=== PATIENT | female | born 1970 | race Caucasian/White ===

== ENCOUNTER 2018-12-26 01:49 | Observation (INO) | payer OTHER ==
--- NOTE | 2018-12-26 01:53 | PDOC ---
History of Present Illness - General Stated Complaint: SYNCOPE Time Seen by Provider: 12/26/18 01:51 - History of Present Illness Initial Comments: 12/26/18 03:38 48F with pmh of adenocarcinoma of the left breast, (last chemo and radiation in June 2017, August 2017) and HTN presents to the ED after episode of syncope at home this evening and low blood pressure as long as systolic in the 80's according to EMS. She went to the bathroom to pee then went downstairs to see her son, felt a hot flash and sat down before losing consciousness for a minute. Event was witnessed by family. She had a similar episode a month ago when she ended falling on the floor, no follow up. Had a recent echo by her head greenskeeper that found she had a "bad valve" No slurred speech or weakness. Patient states she's been having hypotension and presyncopal symptoms ever since she started Carvedilol and Lisinopril. Denies fever, chest pain, sob, Past History - Past Medical History Allergies/Adverse Reactions: Allergies Allergy/AdvReac Type Severity Reaction Status Date / Time Iodinated Contrast- Oral and AdvReac Verified 12/26/18 04:12 IV Dye Home Medications: Ambulatory Orders Carvedilol Phosphate [Carvedilol ER] 10 mg PO BID 12/26/18 Exemestane [Aromasin -] 25 mg PO DAILY 12/26/18 Lisinopril 20 mg PO DAILY 12/26/18 Review of Systems - Review of Systems Able to Perform ROS?: Yes Is the patient limited Mongolian proficient: No Constitutional: Yes: Chills HEENTM: No: Symptoms Reported Respiratory: No: Symptoms reported Cardiac (ROS): No: Symptoms Reported ABD/GI: No: Symptoms Reported : No: Symptoms Reported Musculoskeletal: No: Symptoms Reported Integumentary: No: Symptoms Reported Neurological: No: Symptoms reported All Other Systems: Reviewed and Negative *Physical Exam - Physical Exam General Appearance: Yes: Nourished, Appropriately Dressed. No: Apparent Distress HEENT: positive: EOMI, CHARLIE, Normal ENT Inspection Respiratory/Chest: positive: Lungs Clear, Normal Breath Sounds. negative: Chest Tender, Respiratory Distress Cardiovascular: positive: Regular Rhythm, Regular Rate, S1, S2 Gastrointestinal/Abdominal: positive: Normal Bowel Sounds, Flat, Soft. negative : Tender Musculoskeletal: positive: Normal Inspection. negative: CVA Tenderness Extremity: positive: Normal Capillary Refill, Normal Inspection, Normal Range of Motion Integumentary: positive: Normal Color, Dry, Warm Neurologic: positive: Fully Oriented, Alert, Normal Mood/Affect, Normal Response , Motor Strength 11/07 ED Treatment Course - LABORATORY CBC & Chemistry Diagram: 12/26/18 02:17 12/26/18 02:17 Medical Decision Making - Medical Decision Making 12/26/18 02:37 48f with syncope and hypotension. Drug induced vs vasovagal vsOrthostatic hypotension vs arrhythmia vs PE EKG: Normal sinus rhtyhm, prolonged QT (448/493), abnormal ekg 12/26/18 04:[address]: No evidence of pathology. Prolonged QT is certainly a reasonable, possible cause for her syncope. Because the patient si currently getting cancer treatment she is at risk for Pe. D-dimer is elevated at 1438. Will need to obtain CTA chest to r/o PE 12/26/18 05:45 CTA FINDINGS: There is no PE or dissection. Heart size is normal. The trachea and bronchi are patent. There is no pleural or pericardial effusion. Focal infiltrate posterior aspect right lower lobe is suspected to represent pneumonia. The lungs are clear. No fractures identified. Right hepatic lobe hypodensity is questioned a cyst, which may be followed up with nonemergent ultrasound as clinically indicated. The upper abdominal structures are otherwise normal. IMPRESSION: Probable right lower lobe pneumonia. Will admit patient for RLL pneumonia and syncope. Patient treated with azithromycin and ceftriaxone. Admitting to telemetry *DC/Admit/Observation/Transfer Diagnosis at time of Disposition: Right lower lobe pneumonia, Syncope - Discharge Dispostion Decision to Admit order: Yes - Referrals - Patient Instructions - Post Discharge Activity
--- NOTE | 2018-12-26 01:59 | PDOC ---
Attending Attestation - Resident Resident Name: Garfield Rocha - ED Attending Attestation I have performed the following: I have examined & evaluated the patient, The case was reviewed & discussed with the resident, I agree w/resident's findings & plan - HPI HPI: 12/26/18 03:08 Pt had a syncope when she was seated. Lost consciousness. Unclear what caused this. Pt has had this once years ago. She is on seroquel andantiHTN meds. It is possible that her low BP episodes may have caused the passing out today. However, pt also has a hx of breast cancer. We will rule out more sinister causes of syncope. 12/26/18 03:10 FS on arrival is 92 - Physicial Exam PE: 12/26/18 03:10 Agree with resident exam. Pt's abd soft NT ND; lungs and - Medical Decision Making 12/26/18 03:47 Patient Name: RONALDO SHEARER THIS IS A PRELIMINARY REPORT FROM [facility] DATE OF SERVICE: 2018-12-26 03:11:30 IMAGES: 137 EXAM: HEAD CT WITHOUT CONTRAST HISTORY: Syncope COMPARISON: None. FINDINGS: The ventricular system is midline and nondilated. The sulcal pattern is normal for the patient's age. There is no bleed, mass, extra-axial fluid collection or mass effect. No skull fracture or skull lesion is identified. The visualized paranasal sinuses and mastoid air cells are clear. IMPRESSION: No evidence of pathology 12/26/18 06:46 Pt will be admitted for syncope and RLL pneumonia.
[2018-12-26 02:27] VITALS: BMI 25.0
[2018-12-26 02:32] LABS: BASO % 0.3 % (0-2.0); EOS % 1.5 % (0-4.5); HEMATOCRIT 34.2 % (32.4-45.2); HEMOGLOBIN 11.4 GM/dL (10.7-15.3); LYMPH % 16.5 % (8-40); MCH 29.1 pg (25.7-33.7); MCHC 33.3 g/dl (32.0-36.0); MEAN CELL VOLUME 87.3 fl (80-96); MEAN PLT VOLUME 9.8 fl (7.5-11.1); MONO % 6.8 % (3.8-10.2); NEUT % 74.9 % (42.8-82.8); PLATELET COUNT 166 K/MM3 (134-434); RBC 3.91 M/mm3 (3.60-5.2); RDW 14.5 % (11.6-15.6); WHITE BLOOD COUNT 5.9 K/mm3 (4.0-10.0)
[2018-12-26 02:53] LABS: INR 0.93 (0.83-1.09)
[2018-12-26 02:55] LABS: ACTIVATED PTT 29.5 SECONDS (25.2-36.5)
[2018-12-26 02:57] LABS: ALBUMIN 3.6 g/dl (3.4-5.0); BILIRUBIN,TOTAL 0.3 mg/dL (0.2-1); BLOOD UREA NITROGEN 19.4 mg/dL (7-18); CALCIUM 8.4 mg/dL (8.5-10.1); CREATININE 0.7 mg/dL (0.55-1.3); POTASSIUM 3.6 mmol/L (3.5-5.1); TOT PROT 6.5 g/dl (6.4-8.2)
[2018-12-26] MEDS ORDERED: HYDROCORTISONE SOD SUCCINATE 100 MG/2 ML VIAL IVPUSH ONE (03:49)
[2018-12-26 04:54] LABS: PH,URINE 5.5 (5.0-8.0); URINE APPEARANCE CLEAR; URINE BILIRUBIN NEGATIVE (NEGATIVE); URINE COLOR YELLOW; URINE GLUCOSE (UA) NEGATIVE (NEGATIVE); URINE KETONE NEGATIVE (NEGATIVE); URINE LEUK ESTERASE 2+ (NEGATIVE); URINE NITRITE NEGATIVE (NEGATIVE); URINE PROTEIN NEGATIVE (NEGATIVE); URINE UROBILINOGEN 0.2 mg/dL (0.2-1.0)
[2018-12-26] MEDS ORDERED: CEFTRIAXONE 1 GM in DEXTROSE 5%-WATER - 50 ML IVPB ONE (05:42)
[2018-12-26] MEDS ORDERED: AZITHROMYCIN IVPB 500 MG in DEXTROSE 5%-WATER - 250 ML IVPB ONE (05:42)
[2018-12-26] MEDS ORDERED: AZITHROMYCIN IVPB 500 MG/250 ML BAG IVPB ONE (05:53)
[2018-12-26] MEDS ORDERED: CEFTRIAXONE 1 GM/50 ML BAG ONE (05:54)
[2018-12-26] MEDS ORDERED: LISINOPRIL 20 MG TABLET (FP) ONE (11:00)
[2018-12-26] MEDS: LISINOPRIL 20 MG TABLET (FP) PO SCH (11:07)
--- NOTE | 2018-12-26 12:40 | HP ---
CHIEF COMPLAINT: Near syncope PCP: HISTORY OF PRESENT ILLNESS: The patient is a 48 yo f w/ PMH Lt Breast Ca (last chemo 2017, last rads 2018) as well as HTN who comes in into the ED c/o a near syncopal event today. Patient states that she was returning from the bathroom when she felt lightheaded. The patient sat down on the stairs before she passed out and therefore did not lose consciousness or hit her head. The patient states that she has been having similar lightheaded and near syncopal episodes in the past every since starting her home medications of carvedilol and lisinopril "years ago". Patient states that she has discussed the episodes with her PMD and no changes to medications. In the ED, a CTA was negative for PE, but found a RLL pneumonia. She received Ceftriaxone and azithromycin in the ED. On interview, patient has no complaints. Recent Travel: none PAST MEDICAL HISTORY: see HPI PAST SURGICAL HISTORY: Social History: Smoking: denies Alcohol: denies Drugs: denies Family History: non-contributory Allergies Iodinated Contrast- Oral and IV Dye Adverse Reaction (Verified 12/26/18 04:12) HOME MEDICATIONS: Home Medications Medication Instructions Recorded Carvedilol Phosphate [Carvedilol 10 mg PO BID 12/26/18 ER] Exemestane [Aromasin -] 25 mg PO DAILY 12/26/18 Lisinopril 20 mg PO DAILY 12/26/18 REVIEW OF SYSTEMS CONSTITUTIONAL: Absent: fever, chills, diaphoresis, generalized weakness, malaise, loss of appetite, weight change HEENT: Absent: rhinorrhea, nasal congestion, throat pain, throat swelling, difficulty swallowing, mouth swelling, ear pain, eye pain, visual changes CARDIOVASCULAR: Absent: chest pain, syncope, palpitations, irregular heart rate, lightheadedness , peripheral edema RESPIRATORY: Absent: cough, shortness of breath, dyspnea with exertion, orthopnea, wheezing, stridor, hemoptysis GASTROINTESTINAL: Absent: abdominal pain, abdominal distension, nausea, vomiting, diarrhea, constipation, melena, hematochezia GENITOURINARY: Absent: dysuria, frequency, urgency, hesitancy, hematuria, flank pain, genital pain MUSCULOSKELETAL: Absent: myalgia, arthralgia, joint swelling, back pain, neck pain SKIN: Absent: rash, itching, pallor HEMATOLOGIC/IMMUNOLOGIC: Absent: easy bleeding, easy bruising, lymphadenopathy, frequent infections ENDOCRINE: Absent: unexplained weight gain, unexplained weight loss, heat intolerance, cold intolerance NEUROLOGIC: Absent: headache, focal weakness or paresthesias, dizziness, unsteady gait, seizure, mental status changes, bladder or bowel incontinence PSYCHIATRIC: Absent: anxiety, depression, suicidal or homicidal ideation, hallucinations. PHYSICAL EXAMINATION Vital Signs - 24 hr 12/26/18 12/26/18 12/26/18 02:00 02:04 07:20 Temperature 97.9 F 97.5 F L 97.8 F Pulse Rate 73 Pulse Rate [ 80 72 Left Apical] Pulse Rate [ Right side Sitting] Pulse Rate [ Right side Standing] Pulse Rate [ Right side Supine] Respiratory 13 18 18 Rate Blood Pressure 102/63 Blood Pressure 112/79 96/60 [Right Arm] Blood Pressure [Right side Sitting] Blood Pressure [Right side Standing] Blood Pressure [Right side Supine] O2 Sat by Pulse 100 100 100 Oximetry (%) 12/26/18 10:57 Temperature Pulse Rate Pulse Rate [ Left Apical] Pulse Rate [ 94 H Right side Sitting] Pulse Rate [ 93 H Right side Standing] Pulse Rate [ 92 H Right side Supine] Respiratory Rate Blood Pressure Blood Pressure [Right Arm] Blood Pressure 116/69 [Right side Sitting] Blood Pressure 112/61 [Right side Standing] Blood Pressure 116/64 [Right side Supine] O2 Sat by Pulse Oximetry (%) GENERAL: Awake, alert, and fully oriented, in no acute distress. HEAD: Normal with no signs of trauma. EYES: Pupils equal, round and reactive to light, extraocular movements intact, sclera anicteric, conjunctiva clear. No lid lag. LUNGS: Breath sounds equal, clear to auscultation bilaterally. No wheezes, and no crackles. No accessory muscle use. HEART: Regular rate and rhythm, normal S1 and S2 without murmur, rub or gallop. ABDOMEN: Soft, nontender, not distended, normoactive bowel sounds, no guarding, no rebound, no masses. No hepatomegaly or splenomegaly. LOWER EXTREMITIES: 2+ pulses, warm, well-perfused. No calf tenderness. No peripheral edema. NEUROLOGICAL: Cranial nerves II-X intact. Normal speech. Strength 5/5 in all 4 limbs. Sensation intact b/l PSYCHIATRIC: Cooperative. Good eye contact. Appropriate mood and affect. SKIN: Warm, dry, normal turgor, no rashes or lesions noted, normal capillary refill. Laboratory Results - last 24 hr 12/26/18 12/26/18 12/26/18 02:17 02:17 02:17 WBC 5.9 RBC 3.91 Hgb 11.4 Hct 34.2 MCV 87.3 MCH 29.1 MCHC 33.3 RDW 14.5 Plt Count 166 MPV 9.8 Absolute Neuts (auto) 4.4 Neutrophils % 74.9 Lymphocytes % 16.5 Monocytes % 6.8 Eosinophils % 1.5 Basophils % 0.3 Nucleated RBC % 0 PT with INR 11.00 INR 0.93 PTT (Actin FS) 29.5 D-Dimer 1438 H Sodium Potassium Chloride Carbon Dioxide Anion Gap BUN Creatinine Est GFR (CKD-EPI)AfAm Est GFR (CKD-EPI)NonAf Random Glucose Calcium Total Bilirubin AST ALT Alkaline Phosphatase Troponin I Total Protein Albumin Serum , Qual Urine Color Urine Appearance Urine pH Ur Specific [place] Urine Protein Urine Glucose (UA) Urine Ketones Urine Blood Urine Nitrite Urine Bilirubin Urine Urobilinogen Ur Leukocyte Esterase Urine WBC (Auto) Urine RBC (Auto) U Epithel Cells (Auto) 12/26/18 12/26/18 12/26/18 02:17 02:17 02:17 WBC RBC Hgb Hct MCV MCH MCHC RDW Plt Count MPV Absolute Neuts (auto) Neutrophils % Lymphocytes % Monocytes % Eosinophils % Basophils % Nucleated RBC % PT with INR INR PTT (Actin FS) D-Dimer Sodium 139 Potassium 3.6 Chloride 108 H Carbon Dioxide 24 Anion Gap 7 L BUN 19.4 H Creatinine 0.7 Est GFR (CKD-EPI)AfAm 119.58 Est GFR (CKD-EPI)NonAf 103.18 Random Glucose 97 Calcium 8.4 L Total Bilirubin 0.3 AST 15 ALT 19 Alkaline Phosphatase 82 Troponin I < 0.02 Total Protein 6.5 Albumin 3.6 Serum , Qual Negative Urine Color Urine Appearance Urine pH Ur Specific [place] Urine Protein Urine Glucose (UA) Urine Ketones Urine Blood Urine Nitrite Urine Bilirubin Urine Urobilinogen Ur Leukocyte Esterase Urine WBC (Auto) Urine RBC (Auto) U Epithel Cells (Auto) 12/26/18 04:44 WBC RBC Hgb Hct MCV MCH MCHC RDW Plt Count MPV Absolute Neuts (auto) Neutrophils % Lymphocytes % Monocytes % Eosinophils % Basophils % Nucleated RBC % PT with INR INR PTT (Actin FS) D-Dimer Sodium Potassium Chloride Carbon Dioxide Anion Gap BUN Creatinine Est GFR (CKD-EPI)AfAm Est GFR (CKD-EPI)NonAf Random Glucose Calcium Total Bilirubin AST ALT Alkaline Phosphatase Troponin I Total Protein Albumin Serum , Qual Urine Color Yellow Urine Appearance Clear Urine pH 5.5 Ur Specific [place] 1.009 L Urine Protein Negative Urine Glucose (UA) Negative Urine Ketones Negative Urine Blood Negative Urine Nitrite Negative Urine Bilirubin Negative Urine Urobilinogen 0.2 Ur Leukocyte Esterase 2+ H Urine WBC (Auto) none seen Urine RBC (Auto) none seen U Epithel Cells (Auto) none seen ASSESSMENT/PLAN: The patient is a 48 yo f w/ PMH Lt Breast Ca (last chemo 2016, last rads 2017) as well as HTN who comes in into the ED c/o a near syncopal event today. IN the ED, she was found to have a RLL PNA. #Near syncopal event 2/2 medication induced orthostatic hypotension w/ concomitant infection. -CTA shows no PE, but RLL PNA -Patient stats ssx correlates w/ medication administration -patient stats that her PMD is aware of this and made no medication change -primary team will reach out to PMD to discuss this with him/her -orthostatic vital signs -will monitor bp on home medications. Will hold if hypotension develops. -fall precautions #RLL PNA -s/p azithro and ceftriaxone in ED -EKG in ED showed QTc 493; will hold zithromax for now #HTN -treat w/ home meds as above #FEN -no fluids indicated -monitor lytes -sodium control diet #prophy -lovenox 40mg sq daily #dispo -admit tele obs Visit type - Emergency Visit Emergency Visit: Yes ED Registration Date: 12/26/18 Care time: The patient presented to the Emergency Department on the above date and was hospitalized for further evaluation of their emergent condition. - New Patient This patient is new to me today: Yes Date on this admission: 12/26/18 - Critical Care Critical Care patient: No
--- NOTE | 2018-12-26 13:04 | EKG ---
Test Reason : Blood Pressure : / mmHG Vent. Rate : 073 BPM Atrial Rate : 073 BPM P-R Int : 156 ms QRS Dur : 092 ms QT Int : 448 ms P-R-T Axes : 048 002 007 degrees QTc Int : 493 ms NORMAL SINUS RHYTHM PROLONGED QT ABNORMAL ECG NO PREVIOUS ECGS AVAILABLE Confirmed by INDIANA CHONG MD ([id number]) on 12/26/2018 1:04:29 PM Referred By: EVA Confirmed By:INDIANA CHONG MD
--- NOTE | 2018-12-26 17:49 | PN ---
Teaching Attending Note Name of Resident: Philip Barrios ATTENDING PHYSICIAN STATEMENT I saw and evaluated the patient. I reviewed the resident's note and discussed the case with the resident. I agree with the resident's findings and plan as documented. SUBJECTIVE: The patient is a 48yo female with PMH Lt Breast Ca (last chemo 2016, last rads 2017) , HTN who comes in into the ED c/o a near syncopal event today. OBJECTIVE: Vital Signs Temperature 98.0 F 12/26/18 15:30 Pulse Rate 84 12/26/18 15:30 Respiratory Rate 18 12/26/18 15:30 Blood Pressure 114/75 12/26/18 15:30 O2 Sat by Pulse Oximetry (%) 97 12/26/18 15:30 GENERAL: The patient is awake, alert, and fully oriented, in no acute distress. HEAD: AT/NC, with no signs of trauma. EYES: PERRL, extraocular movements intact, sclera anicteric, conjunctiva clear. . ENT: Ears normal, oropharynx clear without exudates, moist mucous membranes. NECK: Trachea midline, full range of motion, supple. LUNGS:decreased BS BL ,no wheezes, no crackles, no accessory muscle use. HEART: Regular rate and rhythm, S1, S2 without murmur, no rub or gallop. ABDOMEN: Soft, nontender, nondistended, normoactive bowel sounds, no guarding, no rebound, no hepatosplenomegaly, no masses. EXTREMITIES: 2+ pulses, warm, well-perfused, no edema. NEUROLOGICAL: Cranial nerves II through XII grossly intact. Normal speech, gait not observed. PSYCH: Normal mood, normal affect. SKIN: Warm, dry, normal turgor, no rashes or lesions noted CBCD WBC 5.9 K/mm3 (4.0-10.0) 12/26/18 02:17 RBC 3.91 M/mm3 (3.60-5.2) 12/26/18 02:17 Hgb 11.4 GM/dL (10.7-15.3) 12/26/18 02:17 Hct 34.2 % (32.4-45.2) 12/26/18 02:17 MCV 87.3 fl (80-96) 12/26/18 02:17 MCHC 33.3 g/dl (32.0-36.0) 12/26/18 02:17 RDW 14.5 % (11.6-15.6) 12/26/18 02:17 Plt Count 166 K/MM3 (134-434) 12/26/18 02:17 MPV 9.8 fl (7.5-11.1) 12/26/18 02:17 CMP Sodium 139 mmol/L (136-145) 12/26/18 02:17 Potassium 3.6 mmol/L (3.5-5.1) 12/26/18 02:17 Chloride 108 mmol/L (98-107) H 12/26/18 02:17 Carbon Dioxide 24 mmol/L (21-32) 12/26/18 02:17 Anion Gap 7 MMOL/L (8-16) L 12/26/18 02:17 BUN 19.4 mg/dL (7-18) H 12/26/18 02:17 Creatinine 0.7 mg/dL (0.55-1.3) 12/26/18 02:17 Random Glucose 97 mg/dL (74-106) 12/26/18 02:17 Calcium 8.4 mg/dL (8.5-10.1) L 12/26/18 02:17 Total Bilirubin 0.3 mg/dL (0.2-1) 12/26/18 02:17 AST 15 U/L (15-37) 12/26/18 02:17 ALT 19 U/L (13-61) 12/26/18 02:17 Alkaline Phosphatase 82 U/L (45-117) 12/26/18 02:17 Total Protein 6.5 g/dl (6.4-8.2) 12/26/18 02:17 Albumin 3.6 g/dl (3.4-5.0) 12/26/18 02:17 CARDIAC ENZYMES Troponin I < 0.02 ng/ml (0.00-0.05) 12/26/18 02:17 Current Medications Generic Name Dose Route Start Last Admin Trade Name Freq PRN Reason Stop Dose Admin Carvedilol 6.25 mg 12/26/18 22:00 Coreg - PO BID [facility] Enoxaparin Sodium 40 mg 12/27/18 10:00 Lovenox - SQ DAILY [facility] Exemestane 25 mg 12/27/18 17:37 Aromasin - PO DAILY [facility] Azithromycin 500 mg in 250 mls @ 250 mls/hr 12/27/18 10:00 Zithromax 500mg Ivpb (Pre-Docked) IVPB DAILY [facility] Ceftriaxone Sodium 1 gm/ 50 mls @ 100 mls/hr 12/27/18 10:00 Dextrose IVPB DAILY [facility] Lisinopril 20 mg 12/26/18 10:24 12/26/18 11:07 Prinivil PO 20 mg DAILY [facility] Administration Home Medications Medication Instructions Recorded Carvedilol [Coreg -] 6.25 mg PO BID 12/26/18 Exemestane [Aromasin -] 25 mg PO DAILY 12/26/18 Lisinopril 10 mg PO DAILY 12/26/18 CTA was negative for PE, RLL pneumonia ASSESSMENT AND PLAN: The patient is a 48 yo f w/ PMH Lt Breast Ca (last chemo 2017, last rads 2018) as well as HTN who comes in into the ED c/o a near syncopal event today. IN the ED, she was found to have a RLL PNA. #Near syncope most likely vasovagal/ orthostatic hypotension #RLL PNA on rocephin s/p one dose of zithromax since EKG in ED showed QTc 493 #HTN continue home meds #prophy: lovenox 40mg sq daily [address] to tele obs.
[2018-12-26] MEDS: EXEMESTANE 25 MG TABLET PO SCH (20:04)
[2018-12-26] MEDS: CARVEDILOL 6.25 MG TABLET (FP) PO SCH (22:12)
[2018-12-27 07:16] LABS: HEMATOCRIT 31.7 % (32.4-45.2); HEMOGLOBIN 10.6 GM/dL (10.7-15.3); MCH 28.9 pg (25.7-33.7); MCHC 33.3 g/dl (32.0-36.0); MEAN CELL VOLUME 86.8 fl (80-96); MEAN PLT VOLUME 9.9 fl (7.5-11.1); PLATELET COUNT 152 K/MM3 (134-434); RBC 3.66 M/mm3 (3.60-5.2); RDW 14.3 % (11.6-15.6); WHITE BLOOD COUNT 4.7 K/mm3 (4.0-10.0)
[2018-12-27 07:20] LABS: PROTHROMBIN TIME (PATIENT) 11.8 SEC (9.7-13.0)
[2018-12-27 07:23] LABS: ACTIVATED PTT 25.4 SECONDS (25.2-36.5)
--- NOTE | 2018-12-27 07:32 | PN ---
Physical Exam: SUBJECTIVE: Patient seen and examined at bedside. no acute events overnight. denies cp, sob, n/v/d OBJECTIVE: Vital Signs Period Temp Pulse Resp BP Sys/Guerra Pulse Ox Last 24 Hr 97.9 F-98.6 F 65-94 18-20 92-116/54-75 97-98 GENERAL: AOX3 NAD HEAD: NCAT EYES: Pupils equal, round and reactive to light, extraocular movements intact, sclera anicteric, conjunctiva clear. No lid lag. LUNGS: Breath sounds equal, clear to auscultation bilaterally. No wheezes, and no crackles. No accessory muscle use. HEART: RRR, normal S1 and S2 without murmur, rub or gallop. ABDOMEN: Soft, NTND, normoactive bowel sounds, no guarding, no rebound, no masses. No hepatomegaly or splenomegaly. LOWER EXTREMITIES: 2+ pulses, warm, well-perfused. No calf tenderness. No peripheral edema. NEUROLOGICAL: Cranial nerves II-X intact. Normal speech. Strength 5/5 in all 4 limbs. Sensation intact b/l PSYCHIATRIC: Cooperative. Good eye contact. Appropriate mood and affect. SKIN: Warm, dry, normal turgor, no rashes or lesions noted, normal capillary refill. Laboratory Results - last 24 hr 12/27/18 06:20 PT with INR 11.80 INR 1.00 PTT (Actin FS) 25.4 Active Medications Generic Name Dose Route Start Last Admin Trade Name Freq PRN Reason Stop Dose Admin Carvedilol 6.25 mg 12/26/18 22:00 12/26/18 22:12 Coreg - PO 6.25 mg BID [facility] Administration Enoxaparin Sodium 40 mg 12/27/18 10:00 Lovenox - SQ DAILY [facility] Exemestane 25 mg 12/26/18 18:30 12/26/18 20:04 Aromasin - PO 25 mg DAILY [facility] Administration Azithromycin 500 mg in 250 mls @ 250 mls/hr 12/27/18 10:00 Zithromax 500mg Ivpb (Pre-Docked) IVPB DAILY [facility] Ceftriaxone Sodium 1 gm/ 50 mls @ 100 mls/hr 12/27/18 10:00 Dextrose IVPB DAILY [facility] Lisinopril 20 mg 12/26/18 10:24 12/26/18 11:07 Prinivil PO 20 mg DAILY [facility] Administration [id number] CT/CHEST CTA Chest CT angiography Clinical information: evaluate for pulmonary embolism Multiplanar imaging was performed following the intravenous bolus administration of nonionic contrast. No discrete pulmonary embolus is noted. A focal opacity measuring approximately 3 x 2 cm is noted within the right lower lobe posteriorly probably representing a pneumonia. No pleural effusion is seen. There is no definite cardiac enlargement. No pericardial effusion is identified. No aortic aneurysm is noted. There is no discrete lymphadenopathy on the basis of CT size criteria. The visualized osseous structures demonstrate no obvious CT evidence of acute pathology. Impression: No CT evidence of pulmonary embolism. A right lower lobe subpleural opacity is seen posteriorly probably representing a pneumonia. Correlate clinically and with follow-up CT to document resolution and lack of underlying pathology. Reported By: Baldemar Robin MD 12/27/18 1115 ASSESSMENT/PLAN: 48 yo f w/ PMH Lt Breast Ca (last chemo 2017, last rads 2018) as well as HTN who comes in into the ED c/o a near syncopal event today. IN the ED, she was found to have a RLL PNA. #Near syncopal event 2/2 medication induced orthostatic hypotension w/ concomitant infection. -CTA shows no PE, but RLL PNA -Patient stats ssx correlates w/ medication administration -patient stats that her PMD is aware of this and made no medication change -primary team will reach out to PMD to discuss this with him/her -will monitor bp on home medications. Will hold if hypotension develops. -fall precautions #RLL PNA -s/p azithro and ceftriaxone in ED -EKG in ED showed QTc 493, monitor closely -c/w azithro and CTX d2 -bcx neg -ucx pending #HTN -treat w/ home meds as above #FEN -no fluids indicated -monitor lytes -sodium control diet #prophy -lovenox 40mg sq daily #dispo -tele obs
[2018-12-27 07:45] LABS: ALBUMIN 3.3 g/dl (3.4-5.0); BILIRUBIN,TOTAL 0.4 mg/dL (0.2-1); BLOOD UREA NITROGEN 12.8 mg/dL (7-18); CALCIUM 8.5 mg/dL (8.5-10.1); CREATININE 0.7 mg/dL (0.55-1.3); MAGNESIUM 2.5 mg/dL (1.8-2.4); POTASSIUM 3.8 mmol/L (3.5-5.1); TOT PROT 6.1 g/dl (6.4-8.2)
[2018-12-27 09:31] VITALS: BP 113/70; PULSE 70; TEMP 98
[2018-12-27] MEDS ORDERED: PT OWN MED DRAWER 7, Y5N ONE (09:32)
[2018-12-27] MEDS ORDERED: cefTRIAXone SODIUM 1 GM VIAL ONE (09:33)
[2018-12-27] MEDS ORDERED: DEXTROSE 5%-WATER - 50 ML IVPB ONE (09:33)
[2018-12-27] MEDS: EXEMESTANE 25 MG TABLET PO SCH (09:44)
[2018-12-27] MEDS: CARVEDILOL 6.25 MG TABLET (FP) PO SCH (09:44)
[2018-12-27] MEDS: LISINOPRIL 20 MG TABLET (FP) PO SCH (09:44)
[2018-12-27] MEDS ORDERED: CARVEDILOL PHOSPHATE CR 20 MG CAPSULE PO SCH (10:00)
[2018-12-27] MEDS ORDERED: AZITHROMYCIN IVPB 500 MG/250 ML BAG IVPB SCH (10:00)
[2018-12-27] MEDS ORDERED: CEFTRIAXONE 1 GM in DEXTROSE 5%-WATER - 50 ML IVPB SCH (10:00)
[2018-12-27] MEDS ORDERED: EXEMESTANE 25 MG TABLET PO SCH (10:00)
[2018-12-27] MEDS ORDERED: ENOXAPARIN NA (PORCINE) 40 MG/0.4 ML DISP.SYRIN SQ SCH (10:00)
--- NOTE | 2018-12-27 11:44 | DS ---
Physical Exam: SUBJECTIVE: Patient seen and examined at bedside. no acute events overnight. denies cp, sob, n/v/d OBJECTIVE: Vital Signs Period Temp Pulse Resp BP Sys/Guerra Pulse Ox Last 24 Hr 97.9 F-98.6 F 65-85 18-20 92-114/54-75 97-99 PHYSICAL EXAM GENERAL: AOX3 NAD HEAD: NCAT EYES: Pupils equal, round and reactive to light, extraocular movements intact, sclera anicteric, conjunctiva clear. No lid lag. LUNGS: Breath sounds equal, clear to auscultation bilaterally. No wheezes, and no crackles. No accessory muscle use. HEART: RRR, normal S1 and S2 without murmur, rub or gallop. ABDOMEN: Soft, NTND, normoactive bowel sounds, no guarding, no rebound, no masses. No hepatomegaly or splenomegaly. LOWER EXTREMITIES: 2+ pulses, warm, well-perfused. No calf tenderness. No peripheral edema. NEUROLOGICAL: Cranial nerves II-X intact. Normal speech. Strength 5/5 in all 4 limbs. Sensation intact b/l PSYCHIATRIC: Cooperative. Good eye contact. Appropriate mood and affect. SKIN: Warm, dry, normal turgor, no rashes or lesions noted, normal capillary refill. LABS Laboratory Results - last 24 hr 12/27/18 12/27/18 12/27/18 05:20 05:20 06:20 WBC 4.7 RBC 3.66 Hgb 10.6 L Hct 31.7 L MCV 86.8 MCH 28.9 MCHC 33.3 RDW 14.3 Plt Count 152 MPV 9.9 PT with INR 11.80 INR 1.00 PTT (Actin FS) 25.4 Sodium 144 Potassium 3.8 Chloride 111 H Carbon Dioxide 28 Anion Gap 5 L BUN 12.8 Creatinine 0.7 Est GFR (CKD-EPI)AfAm 119.58 Est GFR (CKD-EPI)NonAf 103.18 Random Glucose 90 Calcium 8.5 Phosphorus 3.0 Magnesium 2.5 H Total Bilirubin 0.4 AST 10 L ALT 17 Alkaline Phosphatase 74 Total Protein 6.1 L Albumin 3.3 L 5380-4707 CT/CHEST CTA Chest CT angiography Clinical information: evaluate for pulmonary embolism Multiplanar imaging was performed following the intravenous bolus administration of nonionic contrast. No discrete pulmonary embolus is noted. A focal opacity measuring approximately 3 x 2 cm is noted within the right lower lobe posteriorly probably representing a pneumonia. No pleural effusion is seen. There is no definite cardiac enlargement. No pericardial effusion is identified. No aortic aneurysm is noted. There is no discrete lymphadenopathy on the basis of CT size criteria. The visualized osseous structures demonstrate no obvious CT evidence of acute pathology. Impression: No CT evidence of pulmonary embolism. A right lower lobe subpleural opacity is seen posteriorly probably representing a pneumonia. Correlate clinically and with follow-up CT to document resolution and lack of underlying pathology. Reported By: Baldemar Robin MD 12/27/18 1115 HOSPITAL COURSE: Date of Admission:12/26/18 HPI The patient is a 48 yo f w/ PMH Lt Breast Ca (last chemo 2017, last rads 2018) as well as HTN who comes in into the ED c/o a near syncopal event today. Patient states that she was returning from the bathroom when she felt lightheaded. The patient sat down on the stairs before she passed out and therefore did not lose consciousness or hit her head. The patient states that she has been having similar lightheaded and near syncopal episodes in the past every since starting her home medications of carvedilol and lisinopril "years ago". Patient states that she has discussed the episodes with her PMD and no changes to medications. In the ED, a CTA was negative for PE, but found a RLL pneumonia. She received Ceftriaxone and azithromycin in the ED. On interview, patient has no complaints. Date of Discharge: 12/27/18 48 yo f w/ PMH Lt Breast Ca (last chemo 2017, last rads 2018) as well as HTN who comes in into the ED c/o a near syncopal event today. IN the ED, she was found to have a RLL PNA. Admitted for presyncope 2/2 RLL PNA and possibly c/b questionable medication induced orthostatic hypotension pt is non septic appearing, afebrile and no leukocytosis. VSS (was noted w/ one low reading of 92/54 that self resolved w/ PO hydration) EKG in ED showed QTc 493 no events on tele trop negx1 ucx, bcx neg Head CT no acute pathology -CTA reviewed above, no PE, but RLL PNA -s/p azithro and CTX d2 -will dc w/ augmentin 875 bid for 5 more days -dc w/ probiotic bacid while taking augmentin pt feels much better and requesting to go home. -Per pt ssx have in the past correlated w/ BP medication administration. patient stats that her PMD is aware of this and made no medication change. -while here no hypotension or sxs noticed w/ med administration. pt encouraged to further d/w PCP in outpt pt stable and ready for dc w/ appropriate f/u Minutes to complete discharge: 37 Discharge Summary Reason For Visit: SYNCOPE,RIGHT LOWER PNEUMONIA Current Active Problems Right lower lobe pneumonia (Acute) Syncope (Acute) Condition: Stable - Instructions Diet, Activity, Other Instructions: you came in because you felt like you were going to pass out. your CT of the head was normal but your CT chest showed pneumonia please resume your home meds please take antibiotic augmentin 875mg twice a day for 5 days to treat your pneumonia please take probiotic bacid while taking augmentin please follow up with your PCP or in our clinic with Dr Paulino within 1 week and to discuss whether you should change any of your blood pressure meds if you feel they are causing you to feel lightheaded if you have fever chest pain, shortness of breath, pass out, please call 911 or go to the ER Referrals: Laz Paulino MD [Staff Physician] - 1 Week Disposition: HOME - Home Medications Comprehensive Discharge Medication List: Ambulatory Orders Carvedilol [Coreg -] 6.25 mg PO BID 12/26/18 Exemestane [Aromasin -] 25 mg PO DAILY 12/26/18 Lisinopril 10 mg PO DAILY 12/26/18 Amoxicillin/Potassium Clav [Augmentin 875-125 Tablet] 875 mg PO BID 5 Days #10 tablet 12/27/18 Lactobacillus Acidophilus [Bacid -] 1 each PO DAILY 5 Days #5 tab 12/27/18 This patient is new to me today: Yes Date on this admission: 12/27/18 Emergency Visit: Yes ED Registration Date: 12/26/18 Care time: The patient presented to the Emergency Department on the above date and was hospitalized for further evaluation of their emergent condition. Critical Care patient: No - Discharge Referral Referred to [facility] Med P.C.: No
--- NOTE | 2018-12-27 15:18 | PN ---
Teaching Attending Note Name of Resident: Moody Akers ATTENDING PHYSICIAN STATEMENT I saw and evaluated the patient. I reviewed the resident's note and discussed the case with the resident. I agree with the resident's findings and plan as documented. Patient is comfortable with no acute distress, No shortness of breath, no nausea or vomiting. SUBJECTIVE: Vital Signs Temperature 98 F 12/27/18 09:00 Pulse Rate 70 12/27/18 09:00 Respiratory Rate 18 12/27/18 09:00 Blood Pressure 113/70 12/27/18 09:00 O2 Sat by Pulse Oximetry (%) 99 12/27/18 10:00 GENERAL: The patient is awake, alert, and fully oriented, in no acute distress. HEAD: AT/NC, with no signs of trauma. EYES: PERRL, extraocular movements intact, sclera anicteric, conjunctiva clear. . ENT: Ears normal, oropharynx clear without exudates, moist mucous membranes. NECK: Trachea midline, full range of motion, supple. LUNGS:decreased BS BL ,no wheezes, no crackles, no accessory muscle use. HEART: Regular rate and rhythm, S1, S2 without murmur, no rub or gallop. ABDOMEN: Soft, Nt,ND, positive for BS, no guarding, no rebound, no hepatosplenomegaly, no masses. EXTREMITIES: 2+ pulses, warm, well-perfused, no edema. NEUROLOGICAL: Cranial nerves II through XII grossly intact. Normal speech, gait not observed. PSYCH: Normal mood, normal affect. SKIN: Warm, dry, normal turgor, no rashes or lesions noted CBCD WBC 4.7 K/mm3 (4.0-10.0) 12/27/18 05:20 RBC 3.66 M/mm3 (3.60-5.2) 12/27/18 05:20 Hgb 10.6 GM/dL (10.7-15.3) L 12/27/18 05:20 Hct 31.7 % (32.4-45.2) L 12/27/18 05:20 MCV 86.8 fl (80-96) 12/27/18 05:20 MCHC 33.3 g/dl (32.0-36.0) 12/27/18 05:20 RDW 14.3 % (11.6-15.6) 12/27/18 05:20 Plt Count 152 K/MM3 (134-434) 12/27/18 05:20 MPV 9.9 fl (7.5-11.1) 12/27/18 05:20 CMP Sodium 144 mmol/L (136-145) 12/27/18 05:20 Potassium 3.8 mmol/L (3.5-5.1) 12/27/18 05:20 Chloride 111 mmol/L (98-107) H 12/27/18 05:20 Carbon Dioxide 28 mmol/L (21-32) 12/27/18 05:20 Anion Gap 5 MMOL/L (8-16) L 12/27/18 05:20 BUN 12.8 mg/dL (7-18) 12/27/18 05:20 Creatinine 0.7 mg/dL (0.55-1.3) 12/27/18 05:20 Random Glucose 90 mg/dL (74-106) 12/27/18 05:20 Calcium 8.5 mg/dL (8.5-10.1) 12/27/18 05:20 Total Bilirubin 0.4 mg/dL (0.2-1) 12/27/18 05:20 AST 10 U/L (15-37) L 12/27/18 05:20 ALT 17 U/L (13-61) 12/27/18 05:20 Alkaline Phosphatase 74 U/L (45-117) 12/27/18 05:20 Total Protein 6.1 g/dl (6.4-8.2) L 12/27/18 05:20 Albumin 3.3 g/dl (3.4-5.0) L 12/27/18 05:20 CARDIAC ENZYMES Troponin I < 0.02 ng/ml (0.00-0.05) 12/26/18 02:17 Home Medications Medication Instructions Recorded Carvedilol [Coreg -] 6.25 mg PO BID 12/26/18 Exemestane [Aromasin -] 25 mg PO DAILY 12/26/18 Lisinopril 10 mg PO DAILY 12/26/18 Amoxicillin/Potassium Clav 875 mg PO BID 5 Days #10 tablet 12/27/18 [Augmentin 875-125 Tablet] Lactobacillus Acidophilus [Bacid -] 1 each PO DAILY 5 Days #5 tab 12/27/18 CTA was negative for PE, RLL pneumonia ASSESSMENT AND PLAN: The patient is a 48 yo f w/ PMH Lt Breast Ca (last chemo 2017, last rads 2018) as well as HTN who comes in into the ED c/o a near syncopal event today. IN the ED, she was found to have a RLL PNA. #Near syncope . no further episode , due dehydration, vasovagal/ orthostatic hypotension #RLL PNA s/p IV rocephin and one dose of zithromax since EKG in ED showed QTc 493, will send patient home on 5 days of Augmentin #HTN continue home meds dc patient home
== END 2018-12-27 12:52 | disposition home or self-care (01) ==
LOC: JER 01:49 → JERBED 05:58 → J4W 15:43
PROVIDERS: ADMIT Internal Medicine; ATTEND Internal Medicine
PROC: 3E03329 Introduction of Other Anti-infective into Peripheral Vein, Percutaneous Approach (ICD-10-PCS; principal; 2018-12-26)
PROC: 3E033GC Introduction of Other Therapeutic Substance into Peripheral Vein, Percutaneous Approach (ICD-10-PCS; 2018-12-26)
PROC: 3E013GC Introduction of Other Therapeutic Substance into Subcutaneous Tissue, Percutaneous Approach (ICD-10-PCS; 2018-12-26)
DX: J18.1 Lobar pneumonia, unspecified organism (principal); R55 Syncope and collapse; I10 Essential (primary) hypertension; Z85.3 Personal history of malignant neoplasm of breast; Z92.21 Personal history of antineoplastic chemotherapy; Z92.3 Personal history of irradiation; Z91.041 Radiographic dye allergy status
CPT/HCPCS: 36415; 70450-TC; 71045-TC-FY; 71275-TC; 80053; 81003; 83735; 84100; 84484; 84703; 85025; 85027; 85379; 85610; 85730; 87040; 87086; 93005; 93010; 99285-25; G0378